=== PATIENT | female | born 1965 | race Caucasian/White ===

== ENCOUNTER 2016-09-01 19:24 | Emergency (ER) | payer MEDICARE, MEDICAID ==
[2016-09-01 19:46] VITALS: BP 149/84; TEMP 98; O2SAT 97
--- NOTE | 2016-09-01 20:39 | RAD ---
EXAM DESCRIPTION: X-RAY CHEST- TWO VIEWS CLINICAL HISTORY: Hypertension and dizziness. COMPARISON: None. TECHNIQUE: 2.0 views of the chest FINDINGS: There are no discrete air space infiltrates, pneumothoraces or pleural effusions. There is bilateral interstitial prominence, most likely chronic. The pulmonary vascularity is normal. There is evidence of prior surgery at the cervicothoracic junction The cardiomediastinal silhouette is unremarkable. IMPRESSION: There are no acute lung parenchymal findings. Electronically signed by: Reji Fountain MD 09/01/2016 20:38
--- NOTE | 2016-09-01 21:16 | ED.PDOC ---
History of Present Illness - General Chief Complaint: General Stated Complaint: blood pressure problem Time Seen by Provider: 09/01/16 19:58 Source: patient, family Exam Limitations: no limitations - History of Present Illness Initial Comments: the patient's [id number] female presenting to the emergency room secondary togetting a feeling of a backache while standing up at the sink. She has been having some anxiety and depression problems recently. She felt maybe a little bit short of breath. She felt a little bit of right sided lower chest discomfort. She felt the back pain. She felt mild nausea. She is feeling a little better by time of arrival here. No sink. Near syncope. She reports having chronic pain and taking multiple medications. No fevers. No palpitations. Mild headaches. she reports checking her blood pressures multiple times and getting multiple different varied readings. She is concerned about some irregular heart rhythm. Timing/Duration: 1-3 hours Severity: moderate Improving Factors: nothing Worsening Factors: nothing Associated Symptoms: headaches, loss of appetite, malaise, nausea/vomiting, shortness of breath, weakness - mildmild Allergies/Adverse Reactions: Allergies Ciprofloxacin [From Cipro] Allergy (Verified 06/25/16 10:43) Vomitting Influenza Vaccines Allergy (Verified 09/01/16 19:47) Aspirin Adverse Reaction (Verified 06/25/16 10:43) Causes heart palpitations Home Medications: Ambulatory Orders Citalopram Hydrobromide 20 mg PO DAILY 12/24/15 Clonazepam 0.5 mg PO Q12HR 12/24/15 Gabapentin [Neurontin] 300 mg PO BID 12/24/15 HYDROcodone 10MG/APAP 325MG [[place] 10/325] 1 tab PO Q6HR PRN 12/24/15 Loratadine [Claritin] 10 mg PO DAILY 12/24/15 Montelukast Sodium 10 mg PO DAILY 12/24/15 Olopatadine HCl [Pataday] 1 drop OPHTH DAILY PRN 12/24/15 Omeprazole 20 mg PO DAILY 12/24/15 Pravastatin Sodium [Pravachol] 20 mg PO BEDTIME 12/24/15 Prednisolone Acetate (Ophth) [Prednisolone Acetate] 1 % OP QID PRN 12/24/15 tiZANidine [Zanaflex] 4 mg PO Q8H PRN 04/21/16 Nitrofurantoin Monohydrate Mac [Macrobid] 100 mg PO BID #14 cap 06/25/16 Tramadol HCl 50 mg PO .Q6H PRN 06/25/16 Review of Systems - Review of Systems Constitutional: States: malaise EENTM: States: no symptoms reported Respiratory: States: short of breath - mild Cardiology: States: no symptoms reported Gastrointestinal/Abdominal: States: nausea - mild Genitourinary: States: no symptoms reported Musculoskeletal: States: see HPI - multiple chronic complaints Skin: States: no symptoms reported Neurological: States: headache All other Systems: No Change from Baseline Past Medical History (General) - Patient Medical History Hx Seizures: No Hx Stroke: No Hx Dementia: No Hx Asthma: No Hx of COPD: No Hx Cardiac Disorders: No Hx Congestive Heart Failure: No Hx Pacemaker: No Hx Hypertension: No Hx Thyroid Disease: No Hx Diabetes: No Hx Gastroesophageal Reflux: Yes Hx Renal Disease: No Hx Cancer: No Hx of HIV: No Hx Hepatitis C: No Hx MRSA: No Surgical History: appendectomy, cholecystectomy, Hysterectomy - Vaccination History Hx Tetanus, Diphtheria Vaccination: No - allergic Hx Influenza Vaccination: No - allergic Hx Pneumococcal Vaccination: No - Social History Hx Tobacco Use: Yes Hx Alcohol Use: No Hx Substance Use: No Hx Substance Use Treatment: No Hx Depression: Yes - Female History Patient is a Female of Child Bearing Age (10 -59 yrs old): No Patient : No Family Medical History - Family History Mother Family History: No Known Living Status: Still Living Hx Family Hypertension: Yes Hx Family Stroke: Yes Hx Cardiac Disease: Yes Hx Family;Other: thyroid issue Physical Exam - Physical Exam General Appearance: Alert, Anxious, No apparent distress Eye Exam: bilateral normal Ears, Nose, Throat: hearing grossly normal - poor dentition, normal ENT inspection Neck: non-tender, full range of motion, supple Respiratory: chest non-tender, lungs clear, normal breath sounds, no respiratory distress, no accessory muscle use Cardiovascular/Chest: normal peripheral pulses, regular rate, rhythm, no edema Peripheral Pulses: radial,right: 2+, radial,left: 2+, dorsalis pedis,right: 2+, dorsalis pedis,left: 2+ Gastrointestinal/Abdominal: normal bowel sounds, non tender, soft Rectal Exam: deferred Back Exam: other - diffuse discomfort to palpation throughout the lower back. No acute changes. Extremity: normal range of motion, non-tender, normal inspection, no pedal edema , normal capillary refill Neurologic: alert, oriented x 3 - anxious Skin Exam: normal color Comments: Vital Signs - 24 hr 09/01/16 19:42 Temperature 98.0 F Pulse Rate [ 86 left arm] Respiratory 18 Rate Blood Pressure 149/84 [Left Arm] O2 Sat by Pulse 97 Oximetry Progress - Progress Progress: 09/01/16 21:18 the patient is a 51-year-old female with a multitude of symptoms. Her workup is incomplete. I'm unsure of the diagnosis at this time. Her pressure checks here have been reassuring however. The patient is to follow-up with her primary care doctor later this week. She can resume her home medications. Anxiety certainly may be contributing to the issue. - Results/Orders Results/Orders: 09/01/16 19:58 Telemetry .CONTINUOUS UA [URINALYSIS] Stat 09/01/16 19:59 INFLUENZA A & B ANTIGEN Stat EKG Assessment ONCE 09/01/16 20:00 EKG STAT Laboratory Results - last 24 hr 09/01/16 19:58 WBC 7.3 RBC 4.72 Hgb 15.0 Hct 43.6 MCV 92.5 MCH 31.8 H MCHC 34.4 RDW 15.0 H Plt Count 258 MPV 8.1 Absolute Neuts (auto) 2.50 Absolute Lymphs (auto) 4.10 H Absolute Monos (auto) 0.60 Absolute Eos (auto) 0.10 Absolute Basos (auto) 0.00 Neutrophils % 34.6 L Lymphocytes % 56.0 H Monocytes % 7.6 Eosinophils % 1.2 Basophils % 0.6 Sodium 141 Potassium 3.4 L Chloride 103 Carbon Dioxide 31 Anion Gap 10.4 L BUN 8 Creatinine 0.77 BUN/Creatinine Ratio 10.4 Random Glucose 99 Serum Osmolality 279.6 Calcium 9.0 Magnesium 2.0 Total Bilirubin 0.4 AST 18 ALT 13 Alkaline Phosphatase 59 Creatine Kinase 57 CK-MB (CK-2) 1.1 CK-MB (CK-2) % Not Reportable Troponin I < 0.02 Serum Total Protein 7.3 Albumin 3.9 Globulin 3.4 Albumin/Globulin Ratio 1.1 telemetry monitoring shows normal sinus rhythm. Chest x-ray shows chronic changes only. Departure - Departure Clinical Impression: Anxiety Back pain Qualifiers: Back pain location: low back pain Back pain laterality: bilateral Sciatica presence: without sciatica Qualifier Code: (M54.5) Low back pain Hypertension Qualifiers: Hypertension type: essential hypertension Qualifier Code: (I10) Essential ( primary) hypertension Disposition: Left Against Medical Advice Home Medications: Ambulatory Orders Citalopram Hydrobromide 20 mg PO DAILY 12/24/15 Clonazepam 0.5 mg PO Q12HR 12/24/15 Gabapentin [Neurontin] 300 mg PO BID 12/24/15 HYDROcodone 10MG/APAP 325MG [[place] 10/325] 1 tab PO Q6HR PRN 12/24/15 Loratadine [Claritin] 10 mg PO DAILY 12/24/15 Montelukast Sodium 10 mg PO DAILY 12/24/15 Olopatadine HCl [Pataday] 1 drop OPHTH DAILY PRN 12/24/15 Omeprazole 20 mg PO DAILY 12/24/15 Pravastatin Sodium [Pravachol] 20 mg PO BEDTIME 12/24/15 Prednisolone Acetate (Ophth) [Prednisolone Acetate] 1 % OP QID PRN 12/24/15 tiZANidine [Zanaflex] 4 mg PO Q8H PRN 04/21/16 Nitrofurantoin Monohydrate Mac [Macrobid] 100 mg PO BID #14 cap 06/25/16 Tramadol HCl 50 mg PO .Q6H PRN 06/25/16
== END 2016-09-01 21:25 | disposition left against medical advice (07) ==
LOC: ER 19:24
DX: F41.9 Anxiety disorder, unspecified (principal); M54.5 Low back pain; I10 Essential (primary) hypertension; Z88.6 Allergy status to analgesic agent; Z88.3 Allergy status to other anti-infective agents; Z88.7 Allergy status to serum and vaccine; Z79.899 Other long term (current) drug therapy; K21.9 Gastro-esophageal reflux disease without esophagitis; Z87.891 Personal history of nicotine dependence; Z82.49 Family history of ischemic heart disease and other diseases of the circulatory system; Z82.3 Family history of stroke

== ENCOUNTER → 2016-09-22 | Outpatient (CLI) | payer MEDICARE, MEDICAID | END | disposition home or self-care (01) | LOC: LAB.O 07:00 | PROVIDERS: ATTEND Nurse Practitioner Family | DX: Z00.00 Encounter for general adult medical examination without abnormal findings (principal); I10 Essential (primary) hypertension; Z79.899 Other long term (current) drug therapy ==

== ENCOUNTER → 2016-12-01 | Outpatient (CLI) | payer MEDICARE, MEDICAID | END | disposition home or self-care (01) | LOC: LAB 17:00 | PROVIDERS: ATTEND Nurse Practitioner Family | DX: I10 Essential (primary) hypertension (principal); E11.9 Type 2 diabetes mellitus without complications ==

== ENCOUNTER 2016-12-12 18:22 | Emergency (ER) | payer MEDICARE, MEDICAID ==
[2016-12-12] MEDS ORDERED: KETOROLAC TROMETHAMINE INJ 30 MG/ML VIAL IM ONE (19:08)
[2016-12-12] MEDS ORDERED: METOCLOPRAMIDE HCL INJ 10 MG/2 ML VIAL IV ONE (19:08)
[2016-12-12] MEDS ORDERED: SODIUM CHLORIDE 0.9% 1000ML 1,000 ML IVS ONE (19:08)
[2016-12-12] MEDS ORDERED: ONDANSETRON ODT 8 MG TAB SL SCH (19:30)
--- NOTE | 2016-12-12 20:20 | RAD ---
EXAM: Chest,1 View CLINICAL INDICATION: 51-year-old female with LEFT lower lobe rales. TECHNIQUE: Single view, AP portable chest was obtained. COMPARISON: 09/01/2016. FINDINGS: Stable cardiac and mediastinal silhouette. Heart size is normal. Atherosclerotic thoracic aorta. Lungs are clear without focal opacity, pneumothorax or pleural effusions. The visualized bones are within normal limits. Cervical fusion hardware completely visualized. IMPRESSION: No acute cardiopulmonary abnormalities. Electronically signed by: Aundrea Farah MD 12/12/2016 8:18 PM CDT
--- NOTE | 2016-12-12 20:22 | CT ---
EXAM: Head CLINICAL INDICATION: 51-year-old female with severe headache. COMPARISON: None. TECHNIQUE: CT brain without contrast. FINDINGS: The ventricles, sulci, and cisterns are within normal limits. The alford-white matter differentiation is preserved. There is no mass effect, midline shift, intra- or extra-axial fluid collection/acute hemorrhage. The osseous structures are unremarkable. The paranasal sinuses and mastoid air cells are clear. IMPRESSION: No acute intracranial abnormalities. Electronically signed by: Aundrea Farah MD 12/12/2016 8:20 PM CDT
[2016-12-12] MEDS ORDERED: HYDROcodone 10MG/APAP 325MG 1 EA TAB PO ONE (20:57)
[2016-12-12 21:11] VITALS: BP 121/78; O2SAT 97
--- NOTE | 2016-12-12 21:21 | ED.PDOC ---
History of Present Illness - General Chief Complaint: Headache Stated Complaint: MIGRAINE/NAUSEA Time Seen by Provider: 12/12/16 19:07 Source: patient Exam Limitations: no limitations - History of Present Illness Initial Comments: the patient is a 51-year-old female with a history of migraines. The patient is presenting due to a migraine that started this morning. She is uncertain what triggered it. The migraine is characteristic for her though it is been several years since her last migraine. She has not missed any medication doses. She has not had any fever. She has not passed out. She didn 't throw up several times. No diarrhea. No vision changes though she does not tolerate bright lights well. She does have phonophobia as well. Pain is distributed over the entirety of her scalp. No focal pain. No vision changes otherwise. No focal neurological changes otherwise. Timing/Duration: 4-6 hours Severity: severe Improving Factors: nothing Worsening Factors: other - likely mild noises Associated Symptoms: headaches, loss of appetite, malaise, nausea/vomiting Allergies/Adverse Reactions: Allergies Ciprofloxacin [From Cipro] Allergy (Verified 06/25/16 10:43) Vomitting Influenza Vaccines Allergy (Verified 09/01/16 19:47) Aspirin Adverse Reaction (Verified 06/25/16 10:43) Causes heart palpitations Home Medications: Ambulatory Orders Citalopram Hydrobromide 20 mg PO DAILY 12/24/15 Clonazepam 0.5 mg PO Q12HR 12/24/15 Gabapentin [Neurontin] 300 mg PO BID 12/24/15 HYDROcodone 10MG/APAP 325MG [[place] 10/325] 1 tab PO Q6HR PRN 12/24/15 Loratadine [Claritin] 10 mg PO DAILY 12/24/15 Montelukast Sodium 10 mg PO DAILY 12/24/15 Olopatadine HCl [Pataday] 1 drop OPHTH DAILY PRN 12/24/15 Omeprazole 20 mg PO DAILY 12/24/15 Pravastatin Sodium [Pravachol] 20 mg PO BEDTIME 12/24/15 Prednisolone Acetate (Ophth) [Prednisolone Acetate] 1 % OP QID PRN 12/24/15 tiZANidine [Zanaflex] 4 mg PO Q8H PRN 04/21/16 Nitrofurantoin Monohydrate Mac [Macrobid] 100 mg PO BID #14 cap 06/25/16 Tramadol HCl 50 mg PO .Q6H PRN 06/25/16 Ondansetron [Zofran Odt] 4 mg PO Q4H PRN #10 tab 12/12/16 Promethazine HCl 25 mg PO Q6H PRN #10 tab 12/12/16 Review of Systems - Review of Systems Constitutional: States: malaise EENTM: States: no symptoms reported Respiratory: States: no symptoms reported Cardiology: States: no symptoms reported Gastrointestinal/Abdominal: States: nausea, vomiting Genitourinary: States: no symptoms reported Musculoskeletal: States: no symptoms reported Skin: States: no symptoms reported Neurological: States: anxiety, headache Endocrine: States: increased thirst All other Systems: No Change from Baseline Past Medical History (General) - Patient Medical History Hx Seizures: No Hx Stroke: No Hx Dementia: No Hx Asthma: No Hx of COPD: No Hx Cardiac Disorders: No Hx Congestive Heart Failure: No Hx Pacemaker: No Hx Hypertension: No Hx Thyroid Disease: No Hx Diabetes: No Hx Gastroesophageal Reflux: Yes Hx Renal Disease: No Hx Cancer: No Hx of HIV: No Hx Hepatitis C: No Hx MRSA: No Surgical History: appendectomy, cholecystectomy, Hysterectomy, other - Vaccination History Hx Tetanus, Diphtheria Vaccination: No - allergic Hx Influenza Vaccination: No - allergic Hx Pneumococcal Vaccination: No - Social History Hx Tobacco Use: Yes Hx Alcohol Use: No Hx Substance Use: No Hx Substance Use Treatment: No Hx Depression: Yes - Female History Patient : No Family Medical History - Family History Mother Family History: No Known Living Status: Still Living Hx Family Hypertension: Yes Hx Family Stroke: Yes Hx Cardiac Disease: Yes Hx Family;Other: thyroid issue Physical Exam - Physical Exam General Appearance: Alert Eye Exam: bilateral normal - the patient does not want to look at the light Ears, Nose, Throat: normal ENT inspection, other - poor dentition Neck: non-tender, full range of motion, supple - no meningeal signs Respiratory: chest non-tender, lungs clear, normal breath sounds, no respiratory distress, no accessory muscle use Cardiovascular/Chest: normal peripheral pulses, regular rate, rhythm, no edema Peripheral Pulses: radial,right: 2+, radial,left: 2+, dorsalis pedis,right: 2+, dorsalis pedis,left: 2+ Gastrointestinal/Abdominal: normal bowel sounds, non tender, soft Rectal Exam: deferred Back Exam: normal inspection, no CVA tenderness Extremity: normal range of motion, non-tender, normal inspection, no pedal edema , normal capillary refill Neurologic: senior product designer II-XII nml as tested, no motor/sensory deficits, alert, oriented x 3 Skin Exam: normal color Comments: Vital Signs - 24 hr 12/12/16 12/12/16 18:51 21:10 Temperature 96.3 F L Pulse Rate [ 83 88 left brachial] Respiratory 20 16 Rate Blood Pressure 136/90 121/78 [left brachial] O2 Sat by Pulse 93 L 97 Oximetry Progress - Progress Progress: 12/12/16 21:23 the patient is a 51-year-old female presenting to the emergency room secondary to a migraine headache. She did have a rather extensive workup secondary to the patient not having had a migraine headache for the last couple of years. Head CT, chest x-ray, and lab work appeared reassuring. The patient has responded as expected to treatment. The patient needs to go home and rest and drink plenty of fluids. ER warnings were given for any acute worsening. The patient is to follow-up with her primary care doctor later in the week. The patient will be written for oral Phenergan and oral Zofran for as needed use in the future to prevent vomiting with her migraines and dehydration. - Results/Orders Results/Orders: chest x-ray shows no focal pneumonia or pneumothorax. She does have changes of COPD present. head CT shows no acute changes. 12/12/16 19:30 Ondansetron Odt [Zofran ODT] 4 mg SL ONCE Laboratory Results - last 24 hr 12/12/16 12/12/16 19:25 19:25 WBC 10.1 RBC 5.13 Hgb 16.8 H Hct 48.5 H MCV 94.7 MCH 32.7 H MCHC 34.5 RDW 13.8 Plt Count 248 MPV 7.6 Absolute Neuts (auto) 6.90 H Absolute Lymphs (auto) 2.40 Absolute Monos (auto) 0.80 Absolute Eos (auto) 0.00 Absolute Basos (auto) 0.00 Neutrophils % 68.0 Lymphocytes % 23.3 Monocytes % 7.9 Eosinophils % 0.4 L Basophils % 0.4 Sodium 140 Potassium 3.5 L Chloride 103 Carbon Dioxide 29 Anion Gap 11.5 L BUN 9 Creatinine 0.77 BUN/Creatinine Ratio 11.7 Random Glucose 118 H Serum Osmolality 279.2 Calcium 9.1 Magnesium 2.0 Total Bilirubin 0.6 AST 14 ALT 17 Alkaline Phosphatase 62 Creatine Kinase 36 CK-MB (CK-2) 1.2 Troponin I 0.02 B-Natriuretic Peptide 17.8 Serum Total Protein 7.5 Albumin 3.9 Globulin 3.6 H Albumin/Globulin Ratio 1.1 Departure - Departure Clinical Impression: Dehydration Migraine Qualifiers: Migraine type: unspecified Status migrainosus presence: without status migrainosus Intractability: not intractable Qualified Code(s): G43.909 - Migraine, unspecified, not intractable, without status migrainosus Disposition: Discharge to Home or Self Care Condition: Fair Departure Forms: ED Discharge - Pt. Copy, Patient Portal Self Enrollment Instructions: Migraine -- Adult Diet: regular diet Activity: increase activity as tolerated Referrals: Ganesh Decker MD [Primary Care Provider] - 1-2 Weeks Prescriptions: Ondansetron [Zofran Odt] 4 mg PO Q4H PRN #10 tab PRN Reason: Vomiting Promethazine HCl 25 mg PO Q6H PRN #10 tab PRN Reason: Vomiting Home Medications: Ambulatory Orders Citalopram Hydrobromide 20 mg PO DAILY 12/24/15 Clonazepam 0.5 mg PO Q12HR 12/24/15 Gabapentin [Neurontin] 300 mg PO BID 12/24/15 HYDROcodone 10MG/APAP 325MG [[place] 10/325] 1 tab PO Q6HR PRN 12/24/15 Loratadine [Claritin] 10 mg PO DAILY 12/24/15 Montelukast Sodium 10 mg PO DAILY 12/24/15 Olopatadine HCl [Pataday] 1 drop OPHTH DAILY PRN 12/24/15 Omeprazole 20 mg PO DAILY 12/24/15 Pravastatin Sodium [Pravachol] 20 mg PO BEDTIME 12/24/15 Prednisolone Acetate (Ophth) [Prednisolone Acetate] 1 % OP QID PRN 12/24/15 tiZANidine [Zanaflex] 4 mg PO Q8H PRN 04/21/16 Nitrofurantoin Monohydrate Mac [Macrobid] 100 mg PO BID #14 cap 06/25/16 Tramadol HCl 50 mg PO .Q6H PRN 06/25/16 Ondansetron [Zofran Odt] 4 mg PO Q4H PRN #10 tab 12/12/16 Promethazine HCl 25 mg PO Q6H PRN #10 tab 12/12/16 Additional Instructions: the patient is a 51-year-old female presenting to the emergency room secondary to a migraine headache. She did have a rather extensive workup secondary to the patient not having had a migraine headache for the last couple of years. Head CT, chest x-ray, and lab work appeared reassuring. The patient has responded as expected to treatment. The patient needs to go home and rest and drink plenty of fluids. ER warnings were given for any acute worsening. The patient is to follow-up with her primary care doctor later in the week. The patient will be written for oral Phenergan and oral Zofran for as needed use in the future to prevent vomiting with her migraines and dehydration.
[2016-12-12] MEDS ORDERED: PROMETHAZINE HCL 25 MG TAB PO ONE (21:26)
[2016-12-12] MEDS ORDERED: predniSONE 20 MG TAB PO ONE (21:26)
[2016-12-12 21:49] VITALS: TEMP 97.9
== END 2016-12-12 21:40 | disposition home or self-care (01) ==
LOC: ER 18:22
DX: G43.909 Migraine, unspecified, not intractable, without status migrainosus (principal); E86.0 Dehydration; K21.9 Gastro-esophageal reflux disease without esophagitis; Z87.891 Personal history of nicotine dependence; Z79.899 Other long term (current) drug therapy; Z88.6 Allergy status to analgesic agent; Z88.7 Allergy status to serum and vaccine; Z88.3 Allergy status to other anti-infective agents
CPT/HCPCS: 36415; 70450; 71010; 80053; 82550; 82553; 83735; 83880; 84484; 85025; J1885; J2765; J7030

== ENCOUNTER 2017-03-27 14:34 | Emergency (ER) | payer MEDICARE, MEDICAID ==
--- NOTE | 2017-03-27 14:37 | ED.PDOC ---
History of Present Illness - General Chief Complaint: Cardiovascular Problem Stated Complaint: chest pain/pressure Time Seen by Provider: 03/27/17 14:36 Source: patient, Vital Signs reviewed, EMS notes reviewed Exam Limitations: no limitations - History of Present Illness Initial Comments: Shelby Mcfadden 51 y/o female stated that she was resting at home on her chair after coming from [place] when she had onset of chest pressure/feeling of heaviness and sharp pains left side of her head which started about 1130 hour and been constant so she called up ambulance and was brought here to [facility] er. Timing/Duration: 1-3 hours Severity/Quality: pressure Location: central Chest Pain Radiation: other - face Activities at Onset: rest Prior Chest Pain/Cardiac Workup: no prior chest pain, no prior cardiac workup Improving Factors: nothing Worsening Factors: nothing Nitro Today/Relief: 0.4 mg x 1, provided by ED Aspirin Treatment Today: no aspirin today - allergic to aspirin and declined to take plavix Associated Symptoms: shortness of breath Allergies/Adverse Reactions: Allergies Ciprofloxacin [From Cipro] Allergy (Verified 03/27/17 14:49) Vomitting Influenza Vaccines Allergy (Verified 03/27/17 14:49) Aspirin Adverse Reaction (Verified 03/27/17 14:49) Causes heart palpitations Home Medications: Ambulatory Orders Citalopram Hydrobromide 20 mg PO DAILY 12/24/15 Clonazepam 0.5 mg PO Q12HR 12/24/15 Gabapentin [Neurontin] 300 mg PO BID 12/24/15 HYDROcodone 10MG/APAP 325MG [[place] 10/325] 1 tab PO Q6HR PRN 12/24/15 Loratadine [Claritin] 10 mg PO DAILY 12/24/15 Montelukast Sodium 10 mg PO DAILY 12/24/15 Olopatadine HCl [Pataday] 1 drop OPHTH DAILY PRN 12/24/15 Omeprazole 20 mg PO DAILY 12/24/15 Pravastatin Sodium [Pravachol] 20 mg PO BEDTIME 12/24/15 Prednisolone Acetate (Ophth) [Prednisolone Acetate] 1 % OP QID PRN 12/24/15 tiZANidine [Zanaflex] 4 mg PO Q8H PRN 04/21/16 Nitrofurantoin Monohydrate Mac [Macrobid] 100 mg PO BID #14 cap 06/25/16 Tramadol HCl 50 mg PO .Q6H PRN 06/25/16 Ondansetron [Zofran Odt] 4 mg PO Q4H PRN #10 tab 12/12/16 Promethazine HCl 25 mg PO Q6H PRN #10 tab 12/12/16 Nitroglycerin 0.4 mg Tab [Nitrostat] 0.4 mg SL .Q5M PRN #1 tab 03/27/17 Review of Systems - Review of Systems Constitutional: States: no symptoms reported EENTM: States: no symptoms reported Respiratory: States: no symptoms reported Cardiology: States: see HPI Gastrointestinal/Abdominal: States: no symptoms reported Genitourinary: States: no symptoms reported Musculoskeletal: States: no symptoms reported Skin: States: no symptoms reported Neurological: States: no symptoms reported Endocrine: States: no symptoms reported Hematologic/Lymphatic: States: no symptoms reported Past Medical History (General) - Patient Medical History Hx Seizures: No Hx Stroke: No Hx Dementia: No Hx Asthma: No Hx of COPD: No Hx Cardiac Disorders: No Hx Congestive Heart Failure: No Hx Pacemaker: No Hx Hypertension: No Hx Thyroid Disease: No Hx Diabetes: No Hx Gastroesophageal Reflux: Yes Hx Renal Disease: No Hx Cancer: No Hx of HIV: No Hx Hepatitis C: No Hx MRSA: No Hx Other PMH: Yes - elevated lipids,fibromyalgia,neuropathy Surgical History: cholecystectomy, tonsillectomy, other - neck,bladder suspension rectocele repair,ventral hernia repair,abdomen-bowel obsturction - Vaccination History Hx Tetanus, Diphtheria Vaccination: No - allergic Hx Influenza Vaccination: No - allergic Hx Pneumococcal Vaccination: No - Social History Hx Tobacco Use: Yes Years Tobacco Use: 40 Cigarettes Packs Per Day: 20 Hx Alcohol Use: No Hx Substance Use: No Hx Substance Use Treatment: No Hx Depression: Yes - Activities of Daily Living Patient Lives Alone: No - family - Female History Patient : No Family Medical History - Family History Mother Family History: No Known Living Status: Still Living Hx Family Hypertension: Yes Hx Family Stroke: Yes - mom Hx Cardiac Disease: Yes - brother Hx Family Diabetes: Yes - father Hx Family Cancer: Yes - father Hx Family;Other: thyroid issue Physical Exam - Physical Exam General Appearance: Alert, Anxious, No apparent distress Eyes, Ears, Nose, Throat Exam: PERRL/EOMI, normal ENT inspection, pharynx normal Neck: non-tender, full range of motion, supple Respiratory: chest non-tender, lungs clear Cardiovascular/Chest: normal peripheral pulses, regular rate, rhythm, no murmur Peripheral Pulses: radial,right: 1+, radial,left: 1+ Gastrointestinal/Abdominal: normal bowel sounds, non tender, soft, other - healed surgical scars Extremity: non-tender, no pedal edema, no calf tenderness Neurologic: no motor/sensory deficits, alert, oriented x 3 Skin Exam: normal color, warm/dry Lymphatic: no adenopathy Progress - Progress Progress: 03/27/17 15:47 Vital Signs - 8 hr 03/27/17 03/27/17 14:38 14:47 Temperature 97.6 F Pulse Rate [ 78 pulse ox] Respiratory 20 Rate O2 Sat by Pulse 97 97 Oximetry Vital Signs - 8 hr 03/27/17 03/27/17 14:38 14:47 Temperature 97.6 F Pulse Rate [ 78 pulse ox] Respiratory 20 Rate O2 Sat by Pulse 97 97 Oximetry Laboratory Tests 03/27/17 03/27/17 03/27/17 14:55 14:55 14:55 WBC 11.6 H RBC 4.78 Hgb 15.3 Hct 45.3 MCV 94.8 MCH 32.0 H MCHC 33.7 RDW 12.8 Plt Count 267 MPV 7.9 Absolute Neuts (auto) 6.10 Absolute Lymphs (auto) 4.50 H Absolute Monos (auto) 0.80 Absolute Eos (auto) 0.10 Absolute Basos (auto) 0.10 Neutrophils % 52.9 Lymphocytes % 38.9 Monocytes % 6.8 Eosinophils % 0.6 L Basophils % 0.8 PT 10.0 INR 0.880 PTT (SP) 24.1 L D-Dimer, Quantitative < 230 Sodium 142 Potassium 3.6 Chloride 107 Carbon Dioxide 25 Anion Gap 13.6 BUN 13 Creatinine 0.69 BUN/Creatinine Ratio 18.8 Random Glucose 148 H Serum Osmolality 286.0 Calcium 9.1 Magnesium 2.1 Total Bilirubin 0.5 Direct Bilirubin 0.1 Indirect Bilirubin 0.4 AST 20 ALT 17 Alkaline Phosphatase 50 Creatine Kinase 34 CK-MB (CK-2) 0.9 CK-MB (CK-2) % Not Reportable Troponin I < 0.02 B-Natriuretic Peptide 31.6 Serum Total Protein 7.0 Albumin 3.6 - Results/Orders Results/Orders: Laboratory Tests 08/13/17 08/13/17 08/13/17 14:43 14:55 14:55 WBC 11.6 H RBC 4.78 Hgb 15.3 Hct 45.3 MCV 94.8 MCH 32.0 H MCHC 33.7 RDW 12.8 Plt Count 267 MPV 7.9 Absolute Neuts (auto) 6.10 Absolute Lymphs (auto) 4.50 H Absolute Monos (auto) 0.80 Absolute Eos (auto) 0.10 Absolute Basos (auto) 0.10 Neutrophils % 52.9 Lymphocytes % 38.9 Monocytes % 6.8 Eosinophils % 0.6 L Basophils % 0.8 PT 10.0 INR 0.880 PTT (SP) 24.1 L D-Dimer, Quantitative < 230 Sodium 142 Potassium 3.6 Chloride 107 Carbon Dioxide 25 Anion Gap 13.6 BUN 13 Creatinine 0.69 BUN/Creatinine Ratio 18.8 Random Glucose 148 H Serum Osmolality 286.0 Calcium 9.1 Magnesium 2.1 Total Bilirubin Direct Bilirubin Indirect Bilirubin AST ALT Alkaline Phosphatase Creatine Kinase 34 CK-MB (CK-2) 0.9 CK-MB (CK-2) % Not Reportable Troponin I < 0.02 B-Natriuretic Peptide 31.6 Serum Total Protein Albumin Urine Color Urine Appearance Urine pH Ur Specific [place] Urine Protein Urine Glucose (UA) Urine Ketones Urine Blood Urine Nitrite Urine Bilirubin Urine Urobilinogen Ur Leukocyte Esterase Urine RBC Urine WBC Ur Epithelial Cells Urine Bacteria Urine Opiates Screen Positive H Urine Barbiturates Negative Ur Phencyclidine Scrn Negative U Amphetamin/Meth Scrn Negative U Benzodiazepines Scrn Negative U Cocaine Metab Screen Negative U Cannabinoids Screen Negative 03/27/17 03/27/17 03/27/17 14:55 15:58 16:02 WBC RBC Hgb Hct MCV MCH MCHC RDW Plt Count MPV Absolute Neuts (auto) Absolute Lymphs (auto) Absolute Monos (auto) Absolute Eos (auto) Absolute Basos (auto) Neutrophils % Lymphocytes % Monocytes % Eosinophils % Basophils % PT INR PTT (SP) D-Dimer, Quantitative Sodium Potassium Chloride Carbon Dioxide Anion Gap BUN Creatinine BUN/Creatinine Ratio Random Glucose Serum Osmolality Calcium Magnesium Total Bilirubin 0.5 Direct Bilirubin 0.1 Indirect Bilirubin 0.4 AST 20 ALT 17 Alkaline Phosphatase 50 Creatine Kinase CK-MB (CK-2) CK-MB (CK-2) % Troponin I < 0.02 B-Natriuretic Peptide Serum Total Protein 7.0 Albumin 3.6 Urine Color Yellow Urine Appearance Clear Urine pH 6.0 Ur Specific [place] 1.010 Urine Protein Negative Urine Glucose (UA) Negative Urine Ketones Negative Urine Blood Trace-intact H Urine Nitrite Negative Urine Bilirubin Negative Urine Urobilinogen 0.2 Ur Leukocyte Esterase Negative Urine RBC 1-3 Urine WBC 0 Ur Epithelial Cells 1-3 Urine Bacteria 0 Urine Opiates Screen Urine Barbiturates Ur Phencyclidine Scrn U Amphetamin/Meth Scrn U Benzodiazepines Scrn U Cocaine Metab Screen U Cannabinoids Screen Recommended hospital admission for obs for serial cardiac enzymes but declined stated feeling better wants to go home advised to come back to emergency room as needed - EKG/XRAY/CT EKG: Sinus, no ST T wave changes Comments: heart rate 67 XRAY: chest - no acute abnormalities Departure - Departure Clinical Impression: Chest pain Qualifiers: Chest pain type: unspecified Qualified Code(s): R07.9 - Chest pain, unspecified Headache Qualifiers: Headache type: unspecified Headache chronicity pattern: unspecified pattern Intractability: not intractable Qualified Code(s): R51 - Headache Time of Disposition: 17:01 Disposition: Discharge to Home or Self Care Condition: Good Instructions: DI for Chest Pain, Smoking Cessation Drugs: Nicotine Replacement Products, Serious Ways to Stop Smoking, Cigarette Addiction (Alternative Therapy ), Reasons to Quit Smoking Referrals: Ganesh Decker MD [Primary Care Provider] - 1-2 Weeks Prescriptions: Nitroglycerin 0.4 mg Tab [Nitrostat] 0.4 mg SL .Q5M PRN #1 tab PRN Reason: Chest Pain Home Medications: Ambulatory Orders Citalopram Hydrobromide 20 mg PO DAILY 12/24/15 Clonazepam 0.5 mg PO Q12HR 12/24/15 Gabapentin [Neurontin] 300 mg PO BID 12/24/15 HYDROcodone 10MG/APAP 325MG [[place] 10/325] 1 tab PO Q6HR PRN 12/24/15 Loratadine [Claritin] 10 mg PO DAILY 12/24/15 Montelukast Sodium 10 mg PO DAILY 12/24/15 Olopatadine HCl [Pataday] 1 drop OPHTH DAILY PRN 12/24/15 Omeprazole 20 mg PO DAILY 12/24/15 Pravastatin Sodium [Pravachol] 20 mg PO BEDTIME 12/24/15 Prednisolone Acetate (Ophth) [Prednisolone Acetate] 1 % OP QID PRN 12/24/15 tiZANidine [Zanaflex] 4 mg PO Q8H PRN 04/21/16 Nitrofurantoin Monohydrate Mac [Macrobid] 100 mg PO BID #14 cap 06/25/16 Tramadol HCl 50 mg PO .Q6H PRN 06/25/16 Ondansetron [Zofran Odt] 4 mg PO Q4H PRN #10 tab 12/12/16 Promethazine HCl 25 mg PO Q6H PRN #10 tab 12/12/16 Nitroglycerin 0.4 mg Tab [Nitrostat] 0.4 mg SL .Q5M PRN #1 tab 03/27/17 Additional Instructions: RETURN TO EMERGENCY ROOM NEEDED;Follow up with your primary md in am 2016 call for appointment
[2017-03-27] MEDS ORDERED: SODIUM CHLORIDE 0.9% (FLUSH) 10 ML SYG IV PRN (14:41)
[2017-03-27] MEDS ORDERED: NITROGLYCERIN 0.4 MG 25 EA TAB SL ONE (14:41)
[2017-03-27] MEDS ORDERED: CLOPIDOGREL 75 MG TAB PO ONE (14:42)
[2017-03-27 14:49] VITALS: TEMP 97.6
--- NOTE | 2017-03-27 15:18 | RAD ---
PROCEDURE: XR CHEST 1 VIEW HISTORY: pain COMPARISON: 12/12/2016 TECHNIQUE: Single projection of the chest was done. FINDINGS: There is prior surgery at the cervicothoracic junction . There are no discrete airspace infiltrates, pneumothoraces or pleural effusions. The pulmonary vascularity is normal. The cardiomediastinal silhouette is unremarkable for patient's age and sex. IMPRESSION: There is no acute pleural-parenchymal process seen in the imaged lung vasquez. Location of Interpretation: [facility] Electronically signed by: Reji Fountain MD 03/27/2017 3:17 PM CDT Workstation: [id number]
[2017-03-27] MEDS ORDERED: HYDROcodone 10MG/APAP 325MG 1 EA TAB PO ONE (15:32)
[2017-03-27] MEDS ORDERED: LACTATED RINGERS 1,000 ML IVS ONE (15:52)
[2017-03-27 17:19] VITALS: BP 132/74; O2SAT 95
== END 2017-03-27 17:19 | disposition home or self-care (01) ==
LOC: ER 14:34
DX: R07.9 Chest pain, unspecified (principal); R51 Headache; K21.9 Gastro-esophageal reflux disease without esophagitis; M79.7 Fibromyalgia; G62.9 Polyneuropathy, unspecified; E78.5 Hyperlipidemia, unspecified; F32.9 Major depressive disorder, single episode, unspecified; Z88.8 Allergy status to other drugs, medicaments and biological substances; Z88.7 Allergy status to serum and vaccine; Z88.6 Allergy status to analgesic agent; Z79.899 Other long term (current) drug therapy; Z87.891 Personal history of nicotine dependence

== ENCOUNTER 2017-04-09 20:55 | Emergency (ER) | payer MEDICARE, MEDICAID ==
--- NOTE | 2017-04-09 21:08 | ED.PDOC ---
History of Present Illness - General Chief Complaint: General Stated Complaint: headache x 3 weeks Time Seen by Provider: 04/09/17 21:05 Source: patient, RN notes reviewed, Vital Signs reviewed Exam Limitations: no limitations Additional Information: Pt states she has had a headache for 3 weeks. Her headache starts at the base of her posterior skull/neck region and radiates to the front. She has photophobia and no focal neuro deficits. This is similar to previous migraine headaches. No focal neuro deficits noted. Pt offered Headache Cocktail (Toradol , Reglan, Benadryl, and NS bolus) and within several minutes of this therapy she was in no distress on her cell phone. She said initially her headache was a 12.5 out of 10. Pt has a neurologist that she sees for her headaches. - History of Present Illness Timing/Duration: other - 3 weeks Severity: moderate Improving Factors: nothing Worsening Factors: movement - and bright lights and loud noises Associated Symptoms: headaches Allergies/Adverse Reactions: Allergies Ciprofloxacin [From Cipro] Allergy (Verified 03/27/17 14:49) Vomitting Influenza Vaccines Allergy (Verified 03/27/17 14:49) Aspirin Adverse Reaction (Verified 03/27/17 14:49) Causes heart palpitations Home Medications: Ambulatory Orders Citalopram Hydrobromide 20 mg PO DAILY 12/24/15 Clonazepam 0.5 mg PO Q12HR 12/24/15 Gabapentin [Neurontin] 300 mg PO BID 12/24/15 HYDROcodone 10MG/APAP 325MG [[place] 10/325] 1 tab PO Q6HR PRN 12/24/15 Loratadine [Claritin] 10 mg PO DAILY 12/24/15 Montelukast Sodium 10 mg PO DAILY 12/24/15 Olopatadine HCl [Pataday] 1 drop OPHTH DAILY PRN 12/24/15 Omeprazole 20 mg PO DAILY 12/24/15 Pravastatin Sodium [Pravachol] 20 mg PO BEDTIME 12/24/15 Prednisolone Acetate (Ophth) [Prednisolone Acetate] 1 % OP QID PRN 12/24/15 tiZANidine [Zanaflex] 4 mg PO Q8H PRN 04/21/16 Nitrofurantoin Monohydrate Mac [Macrobid] 100 mg PO BID #14 cap 06/25/16 Tramadol HCl 50 mg PO .Q6H PRN 06/25/16 Ondansetron [Zofran Odt] 4 mg PO Q4H PRN #10 tab 12/12/16 Promethazine HCl 25 mg PO Q6H PRN #10 tab 12/12/16 Nitroglycerin 0.4 mg Tab [Nitrostat] 0.4 mg SL .Q5M PRN #1 tab 03/27/17 Review of Systems - Review of Systems Constitutional: States: no symptoms reported EENTM: States: see HPI Respiratory: States: no symptoms reported Cardiology: States: no symptoms reported Gastrointestinal/Abdominal: States: no symptoms reported Genitourinary: States: no symptoms reported Musculoskeletal: States: no symptoms reported Skin: States: no symptoms reported Neurological: States: see HPI, headache Endocrine: States: no symptoms reported Hematologic/Lymphatic: States: no symptoms reported Past Medical History (General) - Patient Medical History Hx Seizures: No Hx Stroke: No Hx Dementia: No Hx Asthma: No Hx of COPD: No Hx Cardiac Disorders: No Hx Congestive Heart Failure: No Hx Pacemaker: No Hx Hypertension: No Hx Thyroid Disease: No Hx Diabetes: No Hx Gastroesophageal Reflux: Yes Hx Renal Disease: No Hx Cancer: No Hx of HIV: No Hx Hepatitis C: No Hx MRSA: No - Vaccination History Hx Tetanus, Diphtheria Vaccination: No - allergic Hx Influenza Vaccination: No - allergic Hx Pneumococcal Vaccination: No - Social History Hx Tobacco Use: Yes Hx Alcohol Use: No Hx Substance Use: No Hx Substance Use Treatment: No Hx Depression: Yes - Female History Patient : No Family Medical History - Family History Mother Family History: No Known Living Status: Still Living Hx Family Hypertension: Yes Hx Family Stroke: Yes - mom Hx Cardiac Disease: Yes - brother Hx Family Diabetes: Yes - father Hx Family Cancer: Yes - father Hx Family;Other: thyroid issue Physical Exam - Physical Exam General Appearance: No apparent distress - at rest with lights down. After medicine started patient was seen on her cell phone in no distress as well, Unkempt Eye Exam: bilateral normal Ears, Nose, Throat: hearing grossly normal Neck: non-tender, full range of motion, supple, normal inspection Respiratory: no respiratory distress, no accessory muscle use Cardiovascular/Chest: normal peripheral pulses, regular rate, rhythm Gastrointestinal/Abdominal: soft Extremity: normal range of motion, non-tender Neurologic: cabinet builder II-XII nml as tested, no motor/sensory deficits, alert, normal mood/affect, oriented x 3 Progress - Progress Progress: 04/09/17 21:52 Patient seemed to have improved following medications and fluids. She was able to use her cell phone without any distress. Departure - Departure Clinical Impression: Migraine aura, persistent, intractable Time of Disposition: 22:30 Disposition: Discharge to Home or Self Care Condition: Fair Departure Forms: ED Discharge - Pt. Copy, Patient Portal Self Enrollment Instructions: Migraine -- Adult Referrals: Ganesh Decker MD [Primary Care Provider] - 1-5 Days Home Medications: Ambulatory Orders Citalopram Hydrobromide 20 mg PO DAILY 12/24/15 Clonazepam 0.5 mg PO Q12HR 12/24/15 Gabapentin [Neurontin] 300 mg PO BID 12/24/15 HYDROcodone 10MG/APAP 325MG [[place] 10325] 1 tab PO Q6HR PRN 12/24/15 Loratadine [Claritin] 10 mg PO DAILY 12/24/15 Montelukast Sodium 10 mg PO DAILY 12/24/15 Olopatadine HCl [Pataday] 1 drop OPHTH DAILY PRN 12/24/15 Omeprazole 20 mg PO DAILY 12/24/15 Pravastatin Sodium [Pravachol] 20 mg PO BEDTIME 12/24/15 Prednisolone Acetate (Ophth) [Prednisolone Acetate] 1 % OP QID PRN 12/24/15 tiZANidine [Zanaflex] 4 mg PO Q8H PRN 04/21/16 Nitrofurantoin Monohydrate Mac [Macrobid] 100 mg PO BID #14 cap 06/25/16 Tramadol HCl 50 mg PO .Q6H PRN 06/25/16 Ondansetron [Zofran Odt] 4 mg PO Q4H PRN #10 tab 12/12/16 Promethazine HCl 25 mg PO Q6H PRN #10 tab 12/12/16 Nitroglycerin 0.4 mg Tab [Nitrostat] 0.4 mg SL .Q5M PRN #1 tab 03/27/17 Additional Instructions: Follow-up with your Neurologist to determine the best treatment for your chronic migraines. Return to ER if condition worsens/unable to function.
[2017-04-09 21:09] VITALS: TEMP 98.6
[2017-04-09] MEDS ORDERED: METOCLOPRAMIDE HCL INJ 10 MG/2 ML VIAL IV ONE (21:19)
[2017-04-09] MEDS ORDERED: diphenhydrAMINE HCL 50 MG/ML VIAL IV ONE (21:19)
[2017-04-09] MEDS ORDERED: SODIUM CHLORIDE 0.9% 1000ML 1,000 ML IVS PRN (21:19)
[2017-04-09] MEDS ORDERED: KETOROLAC TROMETHAMINE INJ 30 MG/ML VIAL IV ONE (21:20)
[2017-04-09 22:34] VITALS: BP 132/66; O2SAT 97
== END 2017-04-09 22:35 | disposition home or self-care (01) ==
LOC: ER 20:55
DX: G43.119 Migraine with aura, intractable, without status migrainosus (principal); Z87.891 Personal history of nicotine dependence; K21.9 Gastro-esophageal reflux disease without esophagitis; Z79.899 Other long term (current) drug therapy; Z88.3 Allergy status to other anti-infective agents; Z88.6 Allergy status to analgesic agent
CPT/HCPCS: J1200; J1885; J2765; J7030

== ENCOUNTER → 2017-04-29 | Outpatient (CLI) | payer MEDICARE, MEDICAID ==
--- NOTE | 2017-04-29 23:31 | MRI ---
EXAM DATE: 04/29/2017 12:56 PM CDT. PROCEDURE: MR LUMBAR SPINE WITHOUT IV CONTRAST. INDICATION: ACUTE LOW BACK PAIN. COMPARISON: MRI of the lumbar spine from 2015. TECHNIQUE: Multiplanar T1 and T2 MRI images of the lumbar were acquired without administration of intravenous contrast. FINDINGS: The lumbar vertebral bodies demonstrate normal height and alignment. The intervertebral disc spaces are relatively well-preserved. Normal marrow signal. The conus terminates at the level of L2. The cauda equina nerve roots are unremarkable. The partially visualized thoracic cord is normal. There is a partially visualized disc bulge at T11-T12 indenting the ventral cord. L1-L2: Mild disc bulge without spinal canal stenosis. Mild bilateral facet arthropathy without foraminal stenosis. L2-L3: Mild disc bulge and ligamentous hypertrophy without spinal canal stenosis. Mild bilateral facet arthropathy without significant foraminal stenosis. L3-L4: Mild disc bulge and ligamentous hypertrophy without spinal canal stenosis. Mild/moderate bilateral facet arthropathy contributes to mild bilateral foraminal narrowing. L4-L5: Mild disc bulge and ligamentous hypertrophy without significant spinal canal stenosis. Moderate bilateral facet arthropathy contributes to mild/moderate left and mild right foraminal narrowing. L5-S1: No disc bulge or spinal canal stenosis. Moderate bilateral facet arthropathy contributes to mild bilateral foraminal narrowing. The partially visualized abdominal pelvic organs and dorsal paraspinal musculature are unremarkable. IMPRESSION: Mild multilevel degenerative changes of the lumbar spine, minimally progressed from the prior exam. There is a mild disc bulge at T11-T12 which indents the ventral cord. Variable levels demonstrate mild foraminal narrowing. No high-grade spinal canal or neural foraminal stenosis at any level. Facet arthropathy. Electronically signed by: Colten Kilgore MD 04/29/2017 11:30 PM CDT
== END | disposition home or self-care (01) ==
LOC: MRI 15:01
PROVIDERS: ATTEND Family Medicine
DX: M54.5 Low back pain (principal); M47.896 Other spondylosis, lumbar region

== ENCOUNTER → 2017-06-28 | Outpatient (CLI) | payer MEDICARE, MEDICAID ==
--- NOTE | 2017-06-29 14:02 | MRI ---
EXAM DESCRIPTION: Thoracic Spine w/o Contrast CLINICAL HISTORY: MID BACK PAIN COMPARISON: None Available. TECHNIQUE: MRI thoracic is performed according to our usual protocol. FINDINGS: Marked kyphosis of the upper dorsal spine is apparent. No vertebral collapse or marrow edema is evident. Examination from the lower cervical spine through the T6-7 level is essentially normal. A moderately large central disc protrusion at T7-8 abuts and indents the anterior cord without lateralizing a shunt to either the right or left. Adequate spinal canal posterior to the cord is present without central canal stenosis but definite neural compression and possible myelopathy should be considered. At [id number] small central and right parasagittal modest disc protrusion abutting the anterior cord is present without spinal stenosis with extension into the inferior neural foramen at this level. At the T10-11 level a very tiny left parasagittal disc protrusion without significant neural compression is apparent. No paraspinous destructive process or severe stenosis at any level is noted. IMPRESSION: 1. Moderate kyphosis of the upper dorsal spine without acute or chronic compression deformity. Adequate central canal throughout is present. 2. Moderately large central disc protrusion abutting and compressing the anterior cord at the T7-8 level without severe central stenosis but with flattening and indentation of the anterior cord at this level 3. Modest right parasagittal disc protrusion at T11-12 with adequate canal but abutting the anterior cord and mildly compromising the neural foramen 4. Minimal left parasagittal disc protrusion at T10-11. Electronically signed by: Marcel Acevedo MD 06/29/2017 2:01 PM [employer]
== END | disposition home or self-care (01) ==
LOC: MRI 11:00
PROVIDERS: ATTEND Neurological Surgery
DX: M54.9 Dorsalgia, unspecified (principal)

== ENCOUNTER → 2017-07-04 | Outpatient (CLI) | payer MEDICARE, MEDICAID | END | disposition home or self-care (01) | LOC: LAB.O 10:09 | PROVIDERS: ATTEND Neurological Surgery | DX: Z01.812 Encounter for preprocedural laboratory examination (principal); D72.829 Elevated white blood cell count, unspecified ==

== ENCOUNTER 2017-07-17 15:03 | Emergency (ER) | payer MEDICARE, MEDICAID ==
[2017-07-17 15:26] VITALS: TEMP 97.6
--- NOTE | 2017-07-17 15:26 | ED.PDOC ---
History of Present Illness - General Chief Complaint: GI Problem Stated Complaint: diarrhea Time Seen by Provider: 07/17/17 15:25 Source: patient Exam Limitations: no limitations - History of Present Illness Initial Comments: Shelby Mcfadden 51 y/o female stated that she had opiod induced constipation post surgery 1/1/2 weeks ago on her lumbar spine for herniated disc.The last 3 days had been having watery no nausea/vomiting ,fever,has slight abdominal cramps no melena. Timing/Duration: other - 3 days Severity: moderate Improving Factors: nothing Worsening Factors: nothing Associated Symptoms: other - see hpi Allergies/Adverse Reactions: Allergies Ciprofloxacin [From Cipro] Allergy (Verified 07/17/17 15:26) Vomitting Influenza Vaccines Allergy (Verified 07/17/17 15:26) Tramadol Allergy (Verified 07/17/17 15:26) Aspirin Adverse Reaction (Verified 07/17/17 15:26) Causes heart palpitations Celecoxib [From Celebrex] Adverse Reaction (Verified 07/17/17 15:26) Gabapentin Adverse Reaction (Verified 07/17/17 15:26) Home Medications: Ambulatory Orders Citalopram Hydrobromide 20 mg PO DAILY 12/24/15 Clonazepam 0.5 mg PO Q12HR 12/24/15 Gabapentin [Neurontin] 300 mg PO BID 12/24/15 HYDROcodone 10MG/APAP 325MG [[place] 10/325] 1 tab PO Q6HR PRN 12/24/15 Loratadine [Claritin] 10 mg PO DAILY 12/24/15 Montelukast Sodium 10 mg PO DAILY 12/24/15 Olopatadine HCl [Pataday] 1 drop OPHTH DAILY PRN 12/24/15 Omeprazole 20 mg PO DAILY 12/24/15 Pravastatin Sodium [Pravachol] 20 mg PO BEDTIME 12/24/15 Prednisolone Acetate (Ophth) [Prednisolone Acetate] 1 % OP QID PRN 12/24/15 tiZANidine [Zanaflex] 4 mg PO Q8H PRN 04/21/16 Nitrofurantoin Monohydrate Mac [Macrobid] 100 mg PO BID #14 cap 06/25/16 Tramadol HCl 50 mg PO .Q6H PRN 06/25/16 Ondansetron [Zofran Odt] 4 mg PO Q4H PRN #10 tab 12/12/16 Promethazine HCl 25 mg PO Q6H PRN #10 tab 12/12/16 Nitroglycerin 0.4 mg Tab [Nitrostat] 0.4 mg SL .Q5M PRN #1 tab 03/27/17 Review of Systems - Review of Systems Constitutional: States: no symptoms reported EENTM: States: no symptoms reported Respiratory: States: see HPI Cardiology: States: no symptoms reported Gastrointestinal/Abdominal: States: no symptoms reported Genitourinary: States: no symptoms reported Musculoskeletal: States: back pain - post op pain Neurological: States: no symptoms reported Past Medical History (General) - Patient Medical History Hx Seizures: No Hx Stroke: No Hx Dementia: No Hx Asthma: No Hx of COPD: No Hx Cardiac Disorders: No Hx Congestive Heart Failure: No Hx Pacemaker: No Hx Hypertension: Yes Hx Thyroid Disease: No Hx Diabetes: No Hx Gastroesophageal Reflux: Yes Hx Renal Disease: No Hx Cancer: No Hx of HIV: No Hx Hepatitis C: No Hx MRSA: No Surgical History: cholecystectomy, tonsillectomy, Hysterectomy, other - lumbar spine,c-spine,intestinal adhesiolysis,repair:ventral hernia,rectocele - Vaccination History Hx Tetanus, Diphtheria Vaccination: No Hx Influenza Vaccination: No Hx Pneumococcal Vaccination: No - Social History Hx Tobacco Use: Yes Hx Alcohol Use: No Hx Substance Use: No Hx Substance Use Treatment: No Hx Depression: Yes - Female History Patient : No Family Medical History - Family History Mother Family History: No Known Living Status: Still Living Hx Family Hypertension: Yes Hx Family Stroke: Yes - mom Hx Cardiac Disease: Yes - brother Hx Family Diabetes: Yes - father Hx Family Cancer: Yes - father Hx Family;Other: thyroid issue Physical Exam - Physical Exam General Appearance: Alert, Comfortable, No apparent distress Eye Exam: bilateral normal Ears, Nose, Throat: hearing grossly normal, normal ENT inspection, normal pharynx Neck: non-tender, supple Respiratory: lungs clear, normal breath sounds Cardiovascular/Chest: normal peripheral pulses, regular rate, rhythm, no gallop , no murmur Peripheral Pulses: radial,right: 2+, radial,left: 2+ Gastrointestinal/Abdominal: normal bowel sounds, non tender, soft, no organomegaly Back Exam: no CVA tenderness, no vertebral tenderness, other - incision clear / intact Extremity: normal range of motion, non-tender, normal inspection, no pedal edema , no calf tenderness Neurologic: no motor/sensory deficits, alert, oriented x 3 Skin Exam: normal color, warm/dry Progress - Progress Progress: 07/17/17 19:18 Last Vital Signs Temp 97.6 F 07/17/17 15:08 Pulse 96 H 07/17/17 18:14 Resp 20 07/17/17 18:14 BP 140/86 07/17/17 18:14 Pulse Ox 96 07/17/17 18:14 Laboratory Tests 07/17/17 07/17/17 16:09 16:09 WBC 7.2 RBC 4.75 Hgb 15.5 Hct 45.0 MCV 94.8 MCH 32.7 H MCHC 34.4 RDW 13.3 Plt Count 310 MPV 7.6 Absolute Neuts (auto) 4.90 Absolute Lymphs (auto) 1.80 Absolute Monos (auto) 0.40 Absolute Eos (auto) 0.10 Absolute Basos (auto) 0.10 Neutrophils % 67.9 Lymphocytes % 24.9 Monocytes % 5.7 Eosinophils % 0.8 L Basophils % 0.7 Sodium 139 Potassium 3.8 Chloride 103 Carbon Dioxide 29 Anion Gap 10.8 L BUN 6 L Creatinine 0.85 BUN/Creatinine Ratio 7.1 L Random Glucose 125 H Serum Osmolality 276.6 Calcium 9.1 Total Bilirubin 0.4 AST 21 ALT 26 Alkaline Phosphatase 74 Serum Total Protein 7.1 Albumin 3.5 Globulin 3.6 H Albumin/Globulin Ratio 1.0 L Lipase 21 L - EKG/XRAY/CT XRAY: abdomen - no acute abnormalities Departure - Departure Clinical Impression: Abdominal cramps Diarrhea Qualifiers: Diarrhea type: unspecified type Qualified Code(s): R19.7 - Diarrhea, unspecified Time of Disposition: 19:20 Disposition: Discharge to Home or Self Care Condition: Good Departure Forms: ED Discharge - Pt. Copy, Patient Portal Self Enrollment Diet: other - Avoid greasy spicy foods Referrals: Ganesh Decker MD [Primary Care Provider] - 1-2 Weeks Home Medications: Ambulatory Orders Citalopram Hydrobromide 20 mg PO DAILY 12/24/15 Clonazepam 0.5 mg PO Q12HR 12/24/15 Gabapentin [Neurontin] 300 mg PO BID 12/24/15 HYDROcodone 10MG/APAP 325MG [[place] 10/325] 1 tab PO Q6HR PRN 12/24/15 Loratadine [Claritin] 10 mg PO DAILY 12/24/15 Montelukast Sodium 10 mg PO DAILY 12/24/15 Olopatadine HCl [Pataday] 1 drop OPHTH DAILY PRN 12/24/15 Omeprazole 20 mg PO DAILY 12/24/15 Pravastatin Sodium [Pravachol] 20 mg PO BEDTIME 12/24/15 Prednisolone Acetate (Ophth) [Prednisolone Acetate] 1 % OP QID PRN 12/24/15 tiZANidine [Zanaflex] 4 mg PO Q8H PRN 04/21/16 Nitrofurantoin Monohydrate Mac [Macrobid] 100 mg PO BID #14 cap 06/25/16 Tramadol HCl 50 mg PO .Q6H PRN 06/25/16 Ondansetron [Zofran Odt] 4 mg PO Q4H PRN #10 tab 12/12/16 Promethazine HCl 25 mg PO Q6H PRN #10 tab 12/12/16 Nitroglycerin 0.4 mg Tab [Nitrostat] 0.4 mg SL .Q5M PRN #1 tab 03/27/17 Additional Instructions: Keep appointment with back surgeon;Avoid noodle soup may have chicken broth / crackers for tonight then to advance as tolerated
[2017-07-17] MEDS: LACTATED RINGERS 1,000 ML IVS ONE (16:10)
[2017-07-17] MEDS: DICYCLOMINE HCL INJ 20 MG/2 ML AMP IM ONE (16:11)
--- NOTE | 2017-07-17 17:41 | RAD ---
EXAM DESCRIPTION: Abdomen Flat Upright CLINICAL HISTORY: pain COMPARISON: 06/27/2015 FINDINGS: Supine and upright images of the abdomen were submitted. There is no free air in the abdomen. There is no evidence of bowel obstruction. IMPRESSION: No acute abnormalities. Electronically signed by: Lupillo Mcmullen 07/17/2017 5:39 PM [facility]
--- NOTE | 2017-07-17 17:41 | RAD ---
EXAM DESCRIPTION: Chest,2 Views CLINICAL HISTORY: pain COMPARISON: March 27, 2017 FINDINGS: Two views of the chest are submitted. Cardiac silhouette appears normal. No focal parenchymal or pleural disease. No acute bony abnormality. There is no significant pulmonary vascular engorgement. IMPRESSION: No evidence of acute cardiopulmonary disease. Electronically signed by: Lupillo Mcmullen 07/17/2017 5:40 PM [employer]
[2017-07-17 19:29] VITALS: BP 135/79; O2SAT 97
== END 2017-07-17 19:30 | disposition home or self-care (01) ==
LOC: ER 15:03
DX: R19.7 Diarrhea, unspecified (principal); I10 Essential (primary) hypertension; K21.9 Gastro-esophageal reflux disease without esophagitis; Z87.891 Personal history of nicotine dependence; Z79.899 Other long term (current) drug therapy; Z88.8 Allergy status to other drugs, medicaments and biological substances; Z88.7 Allergy status to serum and vaccine
CPT/HCPCS: 36415; 71020; 74010; 80053; 83690; 85025; J0500; J7120

== ENCOUNTER 2017-08-06 11:29 | Emergency (ER) | payer MEDICARE, MEDICAID ==
[2017-08-06 11:48] VITALS: BP 130/84; TEMP 96.6; O2SAT 98
--- NOTE | 2017-08-06 11:49 | ED.PDOC ---
History of Present Illness - General Chief Complaint: Skin/Abrasion/Tear Stated Complaint: Pain to wound on lower back Time Seen by Provider: 08/06/17 11:45 Source: patient Exam Limitations: no limitations - History of Present Illness Initial Comments: The patient is a 51-year-old female presenting to the emergency room secondary to concern over an operative site incision over her low back. Her daughter. The scab off this morning and there was a very mild amount of discharge. The surgery occurred one month ago. No fever. No significant drainage prior. No surrounding erythema. No new back pain. On examination of the wound appears to be a appropriately healing operative site. There are remnants of dissolvable sutures seen. No evidence of infection. No evidence of dehiscence. Timing/Duration: unsure Severity: mild Improving Factors: nothing Worsening Factors: nothing Associated Symptoms: denies symptoms Allergies/Adverse Reactions: Allergies Ciprofloxacin [From Cipro] Allergy (Verified 08/06/17 11:46) Vomitting Influenza Vaccines Allergy (Verified 08/06/17 11:46) Tramadol Allergy (Verified 08/06/17 11:46) Aspirin Adverse Reaction (Verified 08/06/17 11:46) Causes heart palpitations Celecoxib [From Celebrex] Adverse Reaction (Verified 08/06/17 11:46) Gabapentin Adverse Reaction (Verified 08/06/17 11:46) Home Medications: Ambulatory Orders Citalopram Hydrobromide 20 mg PO DAILY 12/24/15 Clonazepam 0.5 mg PO Q12HR 12/24/15 Gabapentin [Neurontin] 300 mg PO BID 12/24/15 HYDROcodone 10MG/APAP 325MG [[place] 10/325] 1 tab PO Q6HR PRN 12/24/15 Loratadine [Claritin] 10 mg PO DAILY 12/24/15 Montelukast Sodium 10 mg PO DAILY 12/24/15 Olopatadine HCl [Pataday] 1 drop OPHTH DAILY PRN 12/24/15 Omeprazole 20 mg PO DAILY 12/24/15 Pravastatin Sodium [Pravachol] 20 mg PO BEDTIME 12/24/15 Prednisolone Acetate (Ophth) [Prednisolone Acetate] 1 % OP QID PRN 12/24/15 tiZANidine [Zanaflex] 4 mg PO Q8H PRN 04/21/16 Nitrofurantoin Monohydrate Mac [Macrobid] 100 mg PO BID #14 cap 06/25/16 Tramadol HCl 50 mg PO .Q6H PRN 06/25/16 Ondansetron [Zofran Odt] 4 mg PO Q4H PRN #10 tab 12/12/16 Promethazine HCl 25 mg PO Q6H PRN #10 tab 12/12/16 Nitroglycerin 0.4 mg Tab [Nitrostat] 0.4 mg SL .Q5M PRN #1 tab 03/27/17 Review of Systems - Review of Systems Constitutional: States: no symptoms reported EENTM: States: no symptoms reported Respiratory: States: no symptoms reported Cardiology: States: no symptoms reported Gastrointestinal/Abdominal: States: no symptoms reported Genitourinary: States: no symptoms reported Musculoskeletal: States: no symptoms reported Skin: States: see HPI Neurological: States: no symptoms reported Endocrine: States: no symptoms reported All other Systems: No Change from Baseline Past Medical History (General) - Patient Medical History Hx Seizures: No Hx Stroke: No Hx Dementia: No Hx Asthma: No Hx of COPD: No Hx Cardiac Disorders: No Hx Congestive Heart Failure: No Hx Pacemaker: No Hx Hypertension: Yes Hx Thyroid Disease: No Hx Diabetes: No Hx Gastroesophageal Reflux: Yes Hx Renal Disease: No Hx Cancer: No Hx of HIV: No Hx Hepatitis C: No Hx MRSA: No - Vaccination History Hx Tetanus, Diphtheria Vaccination: No Hx Influenza Vaccination: No Hx Pneumococcal Vaccination: No - Social History Hx Tobacco Use: Yes Hx Alcohol Use: No Hx Substance Use: No Hx Substance Use Treatment: No Hx Depression: Yes - Female History Patient : No Family Medical History - Family History Mother Family History: No Known Living Status: Still Living Hx Family Hypertension: Yes Hx Family Stroke: Yes - mom Hx Cardiac Disease: Yes - brother Hx Family Diabetes: Yes - father Hx Family Cancer: Yes - father Hx Family;Other: thyroid issue Physical Exam - Physical Exam General Appearance: Alert, Comfortable, No apparent distress Eye Exam: bilateral normal Ears, Nose, Throat: hearing grossly normal Respiratory: no respiratory distress, no accessory muscle use Cardiovascular/Chest: normal peripheral pulses, no edema Peripheral Pulses: radial,right: 2+, radial,left: 2+ Rectal Exam: deferred Back Exam: other - see history of present illness Extremity: non-tender, normal inspection, no pedal edema, normal capillary refill Neurologic: videogame designer II-XII nml as tested, alert, normal mood/affect, oriented x 3 Skin Exam: normal color - see history of present illness Comments: Vital Signs - 24 hr 08/06/17 11:46 Temperature 96.6 F L Pulse Rate [ 105 H Left Radial] Respiratory 18 Rate Blood Pressure 130/84 [Left Arm] O2 Sat by Pulse 98 Oximetry Progress - Progress Progress: 08/06/17 11:48 the patient a 51-year-old female presenting to the emergency room secondary to concern over an operative site on her low back. There is no evidence of infection. She should keep a large Band-Aid with some Neosporin over the operative site. She should follow up with her surgeon as previously scheduled. ER warnings were given for any worsening. Departure - Departure Clinical Impression: Postoperative wound breakdown Qualifiers: Encounter type: initial encounter Qualified Code(s): T81.31XA - Disruption of external operation (surgical) wound, not elsewhere classified, initial encounter Disposition: Discharge to Home or Self Care Condition: Fair Departure Forms: ED Discharge - Pt. Copy, Patient Portal Self Enrollment Diet: regular diet Activity: increase activity as tolerated Referrals: Ganesh Decker MD [Primary Care Provider] - 1-2 Weeks Home Medications: Ambulatory Orders Citalopram Hydrobromide 20 mg PO DAILY 12/24/15 Clonazepam 0.5 mg PO Q12HR 12/24/15 Gabapentin [Neurontin] 300 mg PO BID 12/24/15 HYDROcodone 10MG/APAP 325MG [[place] 10/325] 1 tab PO Q6HR PRN 12/24/15 Loratadine [Claritin] 10 mg PO DAILY 12/24/15 Montelukast Sodium 10 mg PO DAILY 12/24/15 Olopatadine HCl [Pataday] 1 drop OPHTH DAILY PRN 12/24/15 Omeprazole 20 mg PO DAILY 12/24/15 Pravastatin Sodium [Pravachol] 20 mg PO BEDTIME 12/24/15 Prednisolone Acetate (Ophth) [Prednisolone Acetate] 1 % OP QID PRN 12/24/15 tiZANidine [Zanaflex] 4 mg PO Q8H PRN 04/21/16 Nitrofurantoin Monohydrate Mac [Macrobid] 100 mg PO BID #14 cap 06/25/16 Tramadol HCl 50 mg PO .Q6H PRN 06/25/16 Ondansetron [Zofran Odt] 4 mg PO Q4H PRN #10 tab 12/12/16 Promethazine HCl 25 mg PO Q6H PRN #10 tab 12/12/16 Nitroglycerin 0.4 mg Tab [Nitrostat] 0.4 mg SL .Q5M PRN #1 tab 03/27/17 Additional Instructions: the patient a 51-year-old female presenting to the emergency room secondary to concern over an operative site on her low back. There is no evidence of infection. She should keep a large Band-Aid with some Neosporin over the operative site. She should follow up with her surgeon as previously scheduled. ER warnings were given for any worsening.
== END 2017-08-06 12:07 | disposition home or self-care (01) ==
LOC: ER 11:29
DX: T81.31XA Disruption of external operation (surgical) wound, not elsewhere classified, initial encounter (principal); I10 Essential (primary) hypertension; K21.9 Gastro-esophageal reflux disease without esophagitis; F32.9 Major depressive disorder, single episode, unspecified; F17.200 Nicotine dependence, unspecified, uncomplicated; Z79.899 Other long term (current) drug therapy; Z88.1 Allergy status to other antibiotic agents; Z88.6 Allergy status to analgesic agent; Z88.8 Allergy status to other drugs, medicaments and biological substances

== ENCOUNTER 2017-12-28 19:06 | Emergency (ER) | payer MEDICARE, MEDICAID ==
[2017-12-28] MEDS ORDERED: LIDOCAINE 1% 10 ML VIAL INJ ONE (19:19)
[2017-12-28] MEDS ORDERED: LIDOCAINE 2 % GEL 5 ML TUBE TOP ONE (19:19)
--- NOTE | 2017-12-28 19:25 | ED.PDOC ---
History of Present Illness - General Chief Complaint: Skin/Abrasion/Tear Stated Complaint: inflamed hemorrhoid Time Seen by Provider: 12/28/17 19:08 Source: patient Exam Limitations: no limitations - History of Present Illness Initial Comments: Shelby Mcfadden 52 y/o female stated had painful hemorrhoids which she had been treating with OTC-hemorrhoid cream for the last one week but feels not getting better. Timing/Duration: other - see hpi Severity: moderate Improving Factors: nothing Worsening Factors: other - bowel movement Associated Symptoms: denies symptoms Allergies/Adverse Reactions: Allergies Ciprofloxacin [From Cipro] Allergy (Verified 12/28/17 20:00) Vomitting Influenza Vaccines Allergy (Verified 12/28/17 20:00) Tramadol Allergy (Verified 08/06/17 11:46) Aspirin Adverse Reaction (Verified 08/06/17 11:46) Causes heart palpitations Celecoxib [From Celebrex] Adverse Reaction (Verified 08/06/17 11:46) Gabapentin Adverse Reaction (Verified 08/06/17 11:46) Home Medications: Ambulatory Orders Citalopram Hydrobromide 20 mg PO DAILY 12/24/15 Clonazepam 0.5 mg PO Q12HR 12/24/15 Gabapentin [Neurontin] 300 mg PO BID 12/24/15 HYDROcodone 10MG/APAP 325MG [[place] 10/325] 1 tab PO Q6HR PRN 12/24/15 Loratadine [Claritin] 10 mg PO DAILY 12/24/15 Montelukast Sodium 10 mg PO DAILY 12/24/15 Olopatadine HCl [Pataday] 1 drop OPHTH DAILY PRN 12/24/15 Omeprazole 20 mg PO DAILY 12/24/15 Pravastatin Sodium [Pravachol] 20 mg PO BEDTIME 12/24/15 Prednisolone Acetate (Ophth) [Prednisolone Acetate] 1 % OP QID PRN 12/24/15 tiZANidine [Zanaflex] 4 mg PO Q8H PRN 04/21/16 Nitrofurantoin Monohydrate Mac [Macrobid] 100 mg PO BID #14 cap 06/25/16 Tramadol HCl 50 mg PO .Q6H PRN 06/25/16 Ondansetron [Zofran Odt] 4 mg PO Q4H PRN #10 tab 12/12/16 Promethazine HCl 25 mg PO Q6H PRN #10 tab 12/12/16 Nitroglycerin 0.4 mg Tab [Nitrostat] 0.4 mg SL .Q5M PRN #1 tab 03/27/17 Cephalexin 1,000 mg PO BID #30 cap 12/28/17 metroNIDAZOLE [Flagyl] 500 mg PO BID #14 tab 12/28/17 Review of Systems - Review of Systems Constitutional: States: no symptoms reported EENTM: States: no symptoms reported Respiratory: States: no symptoms reported Cardiology: States: no symptoms reported Gastrointestinal/Abdominal: States: see HPI Musculoskeletal: States: back pain - chronic scheduled for surgery next week Neurological: States: no symptoms reported All other Systems: Reviewed and Negative, No Change from Baseline Past Medical History (General) - Patient Medical History Hx Seizures: No Hx Stroke: No Hx Dementia: No Hx Asthma: No Hx of COPD: No Hx Cardiac Disorders: No Hx Congestive Heart Failure: No Hx Pacemaker: No Hx Hypertension: Yes Hx Thyroid Disease: No Hx Diabetes: No Hx Gastroesophageal Reflux: Yes Hx Renal Disease: No Hx Cancer: No Hx of HIV: No Hx Hepatitis C: No Hx MRSA: No Hx Other PMH: Yes - spinal stenosis -lumbar spine Surgical History: appendectomy, cholecystectomy, tonsillectomy, other - c-spine, hysterectomy - Vaccination History Hx Tetanus, Diphtheria Vaccination: No Hx Influenza Vaccination: No Hx Pneumococcal Vaccination: No - Social History Hx Tobacco Use: Yes Hx Alcohol Use: No Hx Substance Use: No Hx Substance Use Treatment: No Hx Depression: Yes Hx Physical Abuse: No Hx Emotional Abuse: No - Female History Patient is a Female of Child Bearing Age (10 -59 yrs old): No Patient : No Family Medical History - Family History Mother Family History: No Known Living Status: Still Living Hx Family Hypertension: Yes Hx Family Stroke: Yes - mom Hx Cardiac Disease: Yes - brother Hx Family Diabetes: Yes - father Hx Family Cancer: Yes - father Hx Family;Other: thyroid issue;Dementia Physical Exam - Physical Exam General Appearance: Alert, Comfortable, No apparent distress Eye Exam: bilateral normal Ears, Nose, Throat: hearing grossly normal, normal ENT inspection Neck: non-tender, full range of motion, supple Respiratory: lungs clear, normal breath sounds, no respiratory distress Cardiovascular/Chest: normal peripheral pulses, regular rate, rhythm, no murmur Peripheral Pulses: radial,right: 2+, radial,left: 2+ Gastrointestinal/Abdominal: normal bowel sounds, non tender, soft Rectal Exam: normal rectal tone, hemorrhoids - thrombosed, tenderness Back Exam: no CVA tenderness, no vertebral tenderness Extremity: no pedal edema, no calf tenderness Neurologic: alert, oriented x 3 Progress - Progress Progress: 12/28/17 20:05 Vital Signs - 8 hr 12/28/17 19:15 Temperature 98.2 F Pulse Rate [ 107 H monitor] Respiratory 16 Rate Blood Pressure 131/87 [Left Arm] O2 Sat by Pulse 95 Oximetry Procedures - Incision and Drainage #1 Site: rectum Procedure and Prep: betadine prep, sterile dressings applied Blade Size: 11 Procedure Comments: After applying Lidocaine to the thrombosed hemorrhoids then after 5 minutes local infiltration with Lidocaine 1 % done followed by excision of the thrombosed hemorrhoids pulling out small rounded clotted blood shown to patient Departure - Departure Clinical Impression: Thrombosed external hemorrhoids Time of Disposition: 20:06 Disposition: Discharge to Home or Self Care Condition: Fair Departure Forms: ED Discharge - Pt. Copy, Patient Portal Self Enrollment Instructions: DI for Hemorrhoids, Hemorrhoids, Hemorrhoids (Alternative Therapy ) Referrals: Ganesh Decker MD [Primary Care Provider] - 1-2 Weeks Prescriptions: Cephalexin 1,000 mg PO BID #30 cap metroNIDAZOLE [Flagyl] 500 mg PO BID #14 tab Home Medications: Ambulatory Orders Citalopram Hydrobromide 20 mg PO DAILY 12/24/15 Clonazepam 0.5 mg PO Q12HR 12/24/15 Gabapentin [Neurontin] 300 mg PO BID 12/24/15 HYDROcodone 10MG/APAP 325MG [[place] 10/325] 1 tab PO Q6HR PRN 12/24/15 Loratadine [Claritin] 10 mg PO DAILY 12/24/15 Montelukast Sodium 10 mg PO DAILY 12/24/15 Olopatadine HCl [Pataday] 1 drop OPHTH DAILY PRN 12/24/15 Omeprazole 20 mg PO DAILY 12/24/15 Pravastatin Sodium [Pravachol] 20 mg PO BEDTIME 12/24/15 Prednisolone Acetate (Ophth) [Prednisolone Acetate] 1 % OP QID PRN 12/24/15 tiZANidine [Zanaflex] 4 mg PO Q8H PRN 04/21/16 Nitrofurantoin Monohydrate Mac [Macrobid] 100 mg PO BID #14 cap 06/25/16 Tramadol HCl 50 mg PO .Q6H PRN 06/25/16 Ondansetron [Zofran Odt] 4 mg PO Q4H PRN #10 tab 12/12/16 Promethazine HCl 25 mg PO Q6H PRN #10 tab 12/12/16 Nitroglycerin 0.4 mg Tab [Nitrostat] 0.4 mg SL .Q5M PRN #1 tab 03/27/17 Cephalexin 1,000 mg PO BID #30 cap 12/28/17 metroNIDAZOLE [Flagyl] 500 mg PO BID #14 tab 12/28/17 Additional Instructions: Follow up with your primary Md for referral to grinder set up operator jig;Return to ER as needed
[2017-12-28] MEDS ORDERED: POVIDONE IODINE 10 % 15 ML UD TOP ONE (19:32)
[2017-12-28] MEDS ORDERED: NEOMYCIN-BACITRACIN-POLYMYXIN 0.9 GM UD TOP ONE (19:52)
[2017-12-28 20:00] VITALS: TEMP 98.2
[2017-12-28] MEDS ORDERED: metroNIDAZOLE 500 MG TAB PO ONE (20:05)
[2017-12-28] MEDS ORDERED: CEPHALEXIN MONOHYDRATE 500 MG CAP PO ONE (20:05)
[2017-12-28 20:24] VITALS: BP 138/92; O2SAT 96
== END 2017-12-28 20:24 | disposition home or self-care (01) ==
LOC: ER 19:06
DX: K64.5 Perianal venous thrombosis (principal); I10 Essential (primary) hypertension; K21.9 Gastro-esophageal reflux disease without esophagitis; Z87.891 Personal history of nicotine dependence

== ENCOUNTER 2018-04-19 10:10 | Emergency (ER) | payer MEDICARE, MEDICAID ==
[2018-04-19 10:25] VITALS: TEMP 98.6
[2018-04-19] MEDS ORDERED: HYDROcodone 10MG/APAP 325MG 1 EA TAB PO ONE (10:40)
[2018-04-19] MEDS ORDERED: KETOROLAC TROMETHAMINE INJ 60 MG/2 ML VIAL IM ONE (10:40)
--- NOTE | 2018-04-19 11:06 | ED.PDOC ---
History of Present Illness - General Chief Complaint: Back Pain or Injury Stated Complaint: BACK PAIN Time Seen by Provider: 04/19/18 10:15 Source: patient Exam Limitations: no limitations - History of Present Illness Initial Comments: PT REPORTS PROGRESSIVELY WORSENING THORACIC BACK PAIN AFTER RIDING A CARNIVAL RIDE LAST WEEK. PT HAS A HISTORY OF CERVICAL AND THORACIC SURGERY AND IS CONCERNED THAT HER HARDWARE IS OUT OF PLACE. PT REPORTS TAKING NORCO AND A MUSCLE RELAXANT THIS MORNING WITHOUT RELIEF. PT STATES THAT SHE HAS AN APPOINTMENT WITH HER NEUROSURGEON ON 04/28 BUT COULD NOT WAIT UNTIL THEN. Timing/Duration: 1 week Quality/Severity: severe Back Pain Location: T-spine Back Pain Radiation: other - LATERAL CHEST WALL Improving Factors: immobilization Worsening Factors: movement Allergies/Adverse Reactions: Allergies Ciprofloxacin [From Cipro] Allergy (Verified 12/28/17 20:00) Vomitting Influenza Vaccines Allergy (Verified 12/28/17 20:00) Tramadol Allergy (Verified 08/06/17 11:46) Aspirin Adverse Reaction (Verified 08/06/17 11:46) Causes heart palpitations Home Medications: Ambulatory Orders Citalopram Hydrobromide 20 mg PO DAILY 12/24/15 Clonazepam 0.5 mg PO Q12HR 12/24/15 Gabapentin [Neurontin] 300 mg PO BID 12/24/15 HYDROcodone 10MG/APAP 325MG [[place] 10325] 1 tab PO Q6HR PRN 12/24/15 Loratadine [Claritin] 10 mg PO DAILY 12/24/15 Montelukast Sodium 10 mg PO DAILY 12/24/15 Olopatadine HCl [Pataday] 1 drop OPHTH DAILY PRN 12/24/15 Omeprazole 20 mg PO DAILY 12/24/15 Pravastatin Sodium [Pravachol] 20 mg PO BEDTIME 12/24/15 Prednisolone Acetate (Ophth) [Prednisolone Acetate] 1 % OP QID PRN 12/24/15 tiZANidine [Zanaflex] 4 mg PO Q8H PRN 04/21/16 Nitrofurantoin Monohydrate Mac [Macrobid] 100 mg PO BID #14 cap 06/25/16 Tramadol HCl 50 mg PO .Q6H PRN 06/25/16 Ondansetron [Zofran Odt] 4 mg PO Q4H PRN #10 tab 12/12/16 Promethazine HCl 25 mg PO Q6H PRN #10 tab 12/12/16 Nitroglycerin 0.4 mg Tab [Nitrostat] 0.4 mg SL .Q5M PRN #1 tab 03/27/17 Cephalexin 1,000 mg PO BID #30 cap 12/28/17 metroNIDAZOLE [Flagyl] 500 mg PO BID #14 tab 12/28/17 Ketorolac Tromethamine [Toradol Tabs] 10 mg PO Q6HRS PRN #24 tab 04/19/18 Review of Systems - Review of Systems Constitutional: Denies: chills, fever EENTM: Denies: nose congestion, throat pain Respiratory: Denies: cough, short of breath Cardiology: Denies: chest pain, palpitations Gastrointestinal/Abdominal: Denies: nausea, vomiting Genitourinary: Denies: dysuria, frequency Musculoskeletal: States: see HPI, back pain, neck pain Skin: Denies: dryness, lesions Neurological: Denies: headache, numbness, paresthesia Endocrine: States: no symptoms reported Hematologic/Lymphatic: States: no symptoms reported Past Medical History (General) - Patient Medical History Hx Seizures: No Hx Stroke: No Hx Dementia: No Hx Asthma: No Hx of COPD: No Hx Cardiac Disorders: No Hx Congestive Heart Failure: No Hx Pacemaker: No Hx Hypertension: Yes Hx Thyroid Disease: No Hx Diabetes: No Hx Gastroesophageal Reflux: Yes Hx Renal Disease: No Hx Cancer: No Hx of HIV: No Hx Hepatitis C: No Hx MRSA: No Surgical History: appendectomy, cholecystectomy, tonsillectomy, Hysterectomy - Vaccination History Hx Tetanus, Diphtheria Vaccination: No Hx Influenza Vaccination: No Hx Pneumococcal Vaccination: No - Social History Hx Tobacco Use: Yes Hx Alcohol Use: No Hx Substance Use: No Hx Substance Use Treatment: No Hx Depression: Yes Hx Physical Abuse: No Hx Emotional Abuse: No - Female History Patient : No Family Medical History - Family History Mother Family History: No Known Living Status: Still Living Hx Family Hypertension: Yes Hx Family Stroke: Yes - mom Hx Cardiac Disease: Yes - brother Hx Family Diabetes: Yes - father Hx Family Cancer: Yes - father Hx Family;Other: thyroid issue;Dementia Physical Exam - Physical Exam General Appearance: Alert, Well Developed, Well Groomed, Well Hydrated, Well Nourished, Other - APPEARS UNCOMFORTABLE Eyes, Ears, Nose, Throat Exam: PERRL/EOMI Neck Exam: full range of motion, normal alignment, normal inspection Cardiovascular/Respiratory: no M/R/G, normal breath sounds Back Exam: vertebral tenderness, other - PROMINENCE OF SPINOUS PROCESS AROUND THE AREA OF T1 Extremity Exam: no evidence of injury, normal range of motion Neurologic: alert, normal mood/affect, oriented x 3 Skin Exam: normal color, warm/dry Progress - Progress Progress: 04/19/18 12:57 PT REPORTS SOME IMPROVEMENT IN SYMPTOMS AFTER TORADOL AND NORCO. XRAY AND CT FINDINGS DISCUSSED. WILL RECOMMEND FOLLOW UP WITH NEUROSURGEON PREVIOUSLY ARRANGED AND WILL ADD TORADOL TO PAIN REGIMEN. Departure - Departure Clinical Impression: Acute thoracic back pain, History of back surgery, Neck pain, acute, History of neck surgery Disposition: Discharge to Home or Self Care Condition: Good Departure Forms: ED Discharge - Pt. Copy, Patient Portal Self Enrollment Instructions: DI for Back Strain or Sprain Referrals: Ganesh Decker MD [Primary Care Provider] - 1-2 Weeks Prescriptions: Ketorolac Tromethamine [Toradol Tabs] 10 mg PO Q6HRS PRN #24 tab PRN Reason: Pain Home Medications: Ambulatory Orders Citalopram Hydrobromide 20 mg PO DAILY 12/24/15 Clonazepam 0.5 mg PO Q12HR 12/24/15 Gabapentin [Neurontin] 300 mg PO BID 12/24/15 HYDROcodone 10MG/APAP 325MG [[place] 10/325] 1 tab PO Q6HR PRN 12/24/15 Loratadine [Claritin] 10 mg PO DAILY 12/24/15 Montelukast Sodium 10 mg PO DAILY 12/24/15 Olopatadine HCl [Pataday] 1 drop OPHTH DAILY PRN 12/24/15 Omeprazole 20 mg PO DAILY 12/24/15 Pravastatin Sodium [Pravachol] 20 mg PO BEDTIME 12/24/15 Prednisolone Acetate (Ophth) [Prednisolone Acetate] 1 % OP QID PRN 12/24/15 tiZANidine [Zanaflex] 4 mg PO Q8H PRN 04/21/16 Nitrofurantoin Monohydrate Mac [Macrobid] 100 mg PO BID #14 cap 06/25/16 Tramadol HCl 50 mg PO .Q6H PRN 06/25/16 Ondansetron [Zofran Odt] 4 mg PO Q4H PRN #10 tab 12/12/16 Promethazine HCl 25 mg PO Q6H PRN #10 tab 12/12/16 Nitroglycerin 0.4 mg Tab [Nitrostat] 0.4 mg SL .Q5M PRN #1 tab 03/27/17 Cephalexin 1,000 mg PO BID #30 cap 12/28/17 metroNIDAZOLE [Flagyl] 500 mg PO BID #14 tab 12/28/17 Ketorolac Tromethamine [Toradol Tabs] 10 mg PO Q6HRS PRN #24 tab 04/19/18
--- NOTE | 2018-04-19 11:17 | RAD ---
EXAM DESCRIPTION: Thoracic Spine,AP Lateral CLINICAL HISTORY: thoracic back pain, h/o thoracic spine surgery COMPARISON: MRI June 28, 2017 IMPRESSION: 3 views of the thoracic spine show bilateral pedicle screw and vertical sara fixation at T7 and T9 with right-sided pedicle screw at T8. No obvious hardware failure or loosening is seen. Thoracic vertebral body heights are maintained. Smooth increased kyphosis of the thoracic spine is seen. Multilevel disc space narrowing and anterior marginal endplate osteophytes consistent with disc degenerative changes of the spine are seen. There is mild dextrocurvature of the upper thoracic spine. Anterior plate and screw fixation is incidentally noted at C3-4. Anterior plate fixation at C5 through possibly T2 with bilateral pedicle screw and vertical sara fixation C5, C6, T1, and T2 is seen. Question retrolisthesis of C7 on T1. Anterior hardware fixation device at the C7-T1 level is noted and may be from the disc space or vertebral bodies. This is not well identified because of overlapping densities in rotation of the patient. Consider further evaluation with CT imaging. Electronically signed by: Artemio Samuels MD 04/19/2018 11:16 AM CDT
--- NOTE | 2018-04-19 12:35 | CT ---
EXAM DESCRIPTION: Thoracic Spine CLINICAL HISTORY: 52 years, Female, abnormal t spine xray COMPARISON: Thoracic spine radiograph obtained earlier same day and an older MRI of the thoracic spine performed June 28, 2017. TECHNIQUE: CT of the thoracic spine was performed without IV contrast. This exam was performed according to our departmental dose-optimization program, which includes automated exposure control, adjustment of the mA and/or kV according to patient size and/or use of iterative reconstruction technique. FINDINGS: No acute vertebral body fracture or subluxation is identified. There are small anterior ossified at several levels in the thoracic spine with mild disc space narrowing at T6-7. Postoperative changes at T7, T8 and T9 are new from the prior exam including bilateral pedicle screws at T7 and T9 and a right-sided pedicle screw at T8 with bilateral posterior fixation rods. The pedicle screws appear well positioned without hardware fracture. The left T7-8 facet joint is not identified with well-defined defects in the T7 and T8 vertebral bodies posteriorly into the left of midline adjacent to the T7-8 disc which have sclerotic margins and do not appear acute. These may be related to prior surgery. Additional postoperative changes are noted in the lower cervical and upper thoracic spine only partially visualized. These include bilateral pedicle screws at T1 and T2 which appear fairly well positioned without apparent pedicle screw fracture. Anterior plate and screw fixation devices extend from the lower cervical spine through the T2 level with radiopaque material filling the anterior aspect of the T1 body likely represent methylmethacrylate cement. Grade 1 anterolisthesis at C7-T1 is suspected. The anterior margins of the vertebral bodies are suboptimally visualized with methylmethacrylate cement anterior to the T1 body resulting in slight elevation of the anterior fixation plate. Anterior screws are present in the T2 body without loosening or other complication. No airspace consolidation or pleural effusion. Emphysematous changes are noted. The central airways are clear. IMPRESSION: Postoperative changes in the mid thoracic spine extending from T7 through T9 as detailed above without apparent hardware complication. Well-defined defects involving the posterior aspects of the T7 and T8 vertebral bodies adjacent to the T7-8 disc have sclerotic margins and are probably surgical. Infection is considered less likely. If clinically suspicious, MRI with metallic suppression sequences, if possible, would be helpful for further evaluation. Additional postoperative changes in the lower cervical and upper thoracic spine with mild elevation of the anterior plate and fixation device at the T1-2 level likely related to methylmethacrylate cement extending anterior to the T1 vertebral body. Grade 1 anterolisthesis at C7-T1, no additional vertebral body fracture or subluxation. Mild multilevel degenerative changes in the thoracic spine including disc space narrowing at T6-7. Electronically signed by: Elver Yun MD 04/19/2018 12:34 PM CDT
--- NOTE | 2018-04-19 12:42 | CT ---
EXAM DESCRIPTION: Cervical Spine CLINICAL HISTORY: abnormal t spine xray COMPARISON: None available. TECHNIQUE: CT of the cervical spine was performed without IV contrast. This exam was performed according to our departmental dose-optimization program, which includes automated exposure control, adjustment of the mA and/or kV according to patient size and/or use of iterative reconstruction technique. FINDINGS: Postoperative changes are noted at multiple levels in the cervical spine. These include anterior fusion at C3-4 without apparent hardware complication. An anterior plate instrumentation fixation device extends from C5 through T2 with bilateral anterior fixation screws at C5 and T2. Elevation of the plate from the anterior margin of T1 is likely related to methylmethacrylate cement extending from the T1 body anteriorly. Fairly well-defined defects in the C6 and C7 bodies demonstrate sclerotic margins and may be related to prior surgery, less likely infection. The C5-6 and C6-7 facets are surgically fused with screws traversing the facet joints bilaterally both levels. No vertebral body fracture or definite subluxation. The disc spaces at C2-3 and C4-5 are only slightly narrowed. C6-7 and C7-T1 disc spaces are poorly visualized, also possibly related to prior surgery. Uncovertebral joint hypertrophy results in bilateral neuroforaminal stenosis at C3-4 and left-sided neuroforaminal stenosis at C4-5. Evaluation of the central canal is limited by metallic artifact. Emphysematous changes are noted in the right lung apex. No definite thyroid nodule. Carotid artery calcifications are noted bilaterally. IMPRESSION: Postoperative changes at multiple levels in the cervical and upper thoracic spine with slight elevation of the anterior fixation plate at T1 likely related to anterior extension of methylmethacrylate cement, questionable clinical significance. Fairly well-defined defects involving large portions of the C6 and C7 bodies, probably related to prior surgery, less likely infection. Degenerative changes including uncovertebral joint hypertrophy resulting in neuroforaminal stenosis at C3-4 and C4-5. Emphysema. Electronically signed by: Elver Yun MD 04/19/2018 12:41 PM CDT
[2018-04-19 12:58] VITALS: O2SAT 96
[2018-04-19 13:17] VITALS: BP 140/78
== END 2018-04-19 13:34 | disposition home or self-care (01) ==
LOC: ER 10:10
DX: M54.6 Pain in thoracic spine (principal); M54.2 Cervicalgia; I10 Essential (primary) hypertension; K21.9 Gastro-esophageal reflux disease without esophagitis; F32.9 Major depressive disorder, single episode, unspecified; Z98.890 Other specified postprocedural states; Z87.891 Personal history of nicotine dependence; Z79.899 Other long term (current) drug therapy; Z88.1 Allergy status to other antibiotic agents; Z88.7 Allergy status to serum and vaccine; Z88.8 Allergy status to other drugs, medicaments and biological substances; Z88.6 Allergy status to analgesic agent
CPT/HCPCS: 72070; 72125; 72128; J1885

== ENCOUNTER → 2018-07-05 | Outpatient (CLI) | payer MEDICARE, MEDICAID ==
--- NOTE | 2018-07-10 08:03 | MRI ---
EXAM DESCRIPTION: Thoracic Spine w/wo Contrast: Magnetic Resonance Imaging. CLINICAL HISTORY: THORACIC RADICULITIS COMPARISON: MRI scan of the thoracic spine without contrast 06/28/2017. TECHNIQUE: Multiplanar, multiple standard sequences, before and after IV gadolinium contrast, thoracic spine. FINDINGS: Since the prior study, patient has undergone posterior fusion from T7 to T9 with unilateral connecting rods. Posterior Transpedicular screws at L3 levels on the right but only at T7 and T9 on the left. Fluid collection can be seen in the surgical site of posterior decompression, posterior to the epidural space at T7 and T8. This measures 2.4 cm longitudinal, 1.2 cm transverse, and 8 mm in the AP axis. There may be minimal distortion by magnetic susceptibility artifact from the hardware. The peripheral capsule of this fluid collection enhances raising concern for inflammatory or infectious process. No fluid or soft tissue mass posterior superior or inferior to the hardware. No soft tissue mass or fluid collection in in the epidural space or cord with normal signal and enhancement in the cord. T11-12 disc desiccation posterior right paracentral protrusion abutting the right ventral cord. Disc also bulges into the base of the right, in the vicinity of the exiting right T11 nerve. Disc space loss. Right foraminal narrowing. Normal enhancement. Left posterior bulge of the T10-T11 disc, abutting the base of the left foramen left ventral cord and in the vicinity of the exiting left T10 nerve root. Disc space loss and bilateral facet arthrosis. Left foraminal narrowing. Normal enhancement. Normal disc space loss and disc desiccation at T6-7. Canal and bilateral foramina are patent. Similar appearance of the disc and disc space at T5-6 with canal and foramina patent. Again noted is bilateral posterior fusion at T1 and T2 levels. T1-T2 and T2-T3 disc spaces are unremarkable. Other disc spaces with normal signal. Disc spaces are preserved. Canal and foramina are patent. No scoliosis. Facet joints are unremarkable. Conus terminates below the T12-L1 disc space. Of a paravertebral soft tissues are unremarkable. Normal marrow signal in the vertebral bodies and the posterior elements. Vertebral bodies are not compressed at any level. IMPRESSION: 1. Since the prior study, posterior transpedicular fusion T7-T9 with unilateral connecting rods. Magnetic artifact decreases resolution. Fluid collection over 2 cm long posterior to the T7-T8 disc space and posterior to the epidural space within the decompression site. Peripheral enhancement in this fluid suggests inflammation or infection. Surgical consult recommended. 2. Stable disc bulge or protrusion at T10-11 and T11-T12. Evaluate for nerve compromise. Desiccated discs at T5-T6 and T6-T7. No cord compression at any level. No abnormal cord enhancement. No soft tissue mass or fluid in the epidural space. Electronically signed by: Lupillo Hoang MD 07/10/2018 8:01 AM [facility]
== END ==
LOC: MRI 11:00
PROVIDERS: ATTEND Emergency Medicine
DX: M51.14 Intervertebral disc disorders with radiculopathy, thoracic region (principal); Z98.1 Arthrodesis status